=== PATIENT | female | born 1990 | race African-American/Black ===

== ENCOUNTER 2021-10-04 12:16 | Emergency (ER) | payer OTHER ==
[~2021-10-04] VITALS: Ht 175.3 cm; Wt 98.3 kg
[2021-10-04 15:50] VITALS: BP 125/76
== END 2021-10-04 15:55 | disposition home or self-care (01) ==
LOC: M ED 12:16
DX: O26.891 Other specified pregnancy related conditions, first trimester (principal); R10.2 Pelvic and perineal pain; Z97.5 Presence of (intrauterine) contraceptive device; Z88.2 Allergy status to sulfonamides

== ENCOUNTER 2021-10-08 10:24 | Emergency (ER) | payer OTHER ==
[~2021-10-08] VITALS: Ht 154.9 cm; Wt 85.1 kg
[2021-10-08 11:34] LABS: BASO % 0.5 % (0.0-1.0); EOS # 0.2 10^3/uL (0.0-0.5); EOS % 3.1 % (0.0-3.0); HEMATOCRIT 39.8 % (36.0-47.0); HEMOGLOBIN 12.2 g/dl (12.0-15.5); LYMPH # 2.3 10^3/uL (1.5-5.0); LYMPH % 35.2 % (24.0-44.0); MEAN CORPUSCULAR HEMOGLOBIN 26.8 pg (27.0-33.0); MEAN CORPUSCULAR HGB CONC 30.7 g/dl (32.0-36.5); MEAN CORPUSCULAR VOLUME 87.5 fl (80.0-96.0); MONO # 0.4 10^3/uL (0.0-0.8); MONO % 6.3 % (2.0-8.0); NEUTROPHILS # 3.5 10^3/uL (1.5-8.5); NEUTROPHILS % 54.7 % (36.0-66.0); PLATELET COUNT, AUTOMATED 459 10^3/uL (150-450); RED BLOOD COUNT 4.55 10^6/uL (4.00-5.40); WHITE BLOOD COUNT 6.4 10^3/uL (4.0-10.0)
[2021-10-08 12:04] LABS: BLOOD UREA NITROGEN 8 MG/DL (7-18); CALCIUM LEVEL 8.6 MG/DL (8.5-10.1); CARBON DIOXIDE LEVEL 29 MEQ/L (21-32); CHLORIDE LEVEL 108 MEQ/L (98-107); CREATININE FOR GFR 0.76 MG/DL (0.55-1.30); GLOMERULAR FILTRATION RATE > 60.0 (>60); GLUCOSE, FASTING 84 MG/DL (70-100); HCG, SERUM QUANTITATIVE 16 MIU/ML; POTASSIUM SERUM 3.8 MEQ/L (3.5-5.1); SODIUM LEVEL 138 MEQ/L (136-145)
[2021-10-08 13:31] VITALS: BP 128/91
== END 2021-10-08 13:36 | disposition home or self-care (01) ==
LOC: M ED 10:24
DX: O03.9 Complete or unspecified spontaneous abortion without complication (principal); O99.331 Smoking (tobacco) complicating pregnancy, first trimester; Z88.1 Allergy status to other antibiotic agents; Z88.2 Allergy status to sulfonamides; Z3A.00 Weeks of gestation of pregnancy not specified